=== PATIENT | male | born 1990 | race Caucasian/White ===

== ENCOUNTER 2022-09-24 18:49 | Emergency (ER) | payer OTHER, SELFPAY ==
[2022-09-24 18:58] VITALS: BP 170/104; PULSE 90; RESP 16; TEMP 36.6; O2SAT 100
--- NOTE | 2022-09-24 19:26 | ED.GENADULT ---
HPI - General Adult General Chief complaint: Ear Stated complaint: sinus issues,ear pressure Source: patient Mode of arrival: ambulatory Limitations: no limitations History of Present Illness HPI narrative: Patient presents for evaluation of sick symptoms for the past 2-3 weeks. Symptoms include sinus congestion mucopurulent discharge from the nares, left-sided ear pain, decreased hearing in left ear, cough and chills. He states he feels off balance in the left ear . No fever, nausea, vomiting, shortness of breath. He has been taking dayquil and mucinex for his symptoms. These seem to help. He smokes two cigarettes per day. He has a hx of ALL but is in remission. Related Data Allergies Allergy/AdvReac Type Severity Reaction Status Date / Time No Known Allergies Allergy Verified 09/24/22 19:01 Review of Systems Review of Systems: CONSTITUTIONAL: Reports chills. Denies fever or sweats. EYES: Denies visual changes, redness, or discharge. ENT: Reports sinus congestion and mucopurulent discharge from the nares. Reports left sided ear pain with associated hearing loss. CARDIOVASCULAR: Denies chest pain, palpitations, or edema. RESPIRATORY:Reports cough. Denies SOB. GASTROINTESTINAL: Denies abdominal pain, nausea, vomiting, or diarrhea. GENITOURINARY: Denies dysuria or hematuria. SKIN: Denies rash or itching. MUSCULOSKELETAL: Denies back pain, joint pain, or myalgia. NEUROLOGIC: Reports balance feeling off in the left ear . Denies headache, numbness, or weakness. PSYCHIATRIC: Denies anxiety or depression. [facility] Past Medical History Medical History ALL (acute lymphoblastic leukemia) Surgical History Surgical History No pertinent past surgical history Family History Family History (Updated 09/24/22 @ 19:32 by SHARON Limon, ) Father Family history non-contributory Social History Social History Smoking packs per day: 0.1 Smoking cigarettes per day: 2.0 Smoking status: Current every day smoker Substance use: never Living arrangements: with family Gender identity (if verbalized by the patient): Male Spiritual care concerns: No Exam Narrative: GENERAL: Well-appearing, well-nourished, and in no acute distress. HEAD: Normocephalic, atraumatic. EYES: PERRLA and EOMI. ENT: Nares clear, no rhinorrhea or epistaxis. Mucous membranes moist. Oropharynx without tonsillar hypertrophy exudate or other lesions. Mild right tympanic membrane erythema. I am unable to visualize the left tympanic membranes due to yellow exudate in the ear canal NECK: Supple. No adenopathy or masses. No carotid bruits or JVD CHEST: Clear to auscultation. No respiratory distress. No wheezes rales or rhonchi HEART: Regular rate and rhythm. No murmur heard. Normal peripheral pulses. ABDOMEN: Soft, nontender, nondistended, normal active bowel sounds. EXTREMITIES: Normal range of motion. No edema. SKIN: Warm, dry, no rash. NEURO: No focal deficits. Alert and oriented x3. PSYCH: Normal mood and affect. Course Course Emergency Course: This is a 32-year-old male who presented for evaluation of sinus symptoms, left-sided ear pain with decreased hearing. My exam he had yellow exudate present in the left ear canal. I irrigated his left ear with half hydrogen peroxide and half water. Nose able to visualize the left tympanic membrane which is erythematous and there appears to be a small perforation present. Will discharge with Augmentin and ofloxacin. He should follow up outpatient for further evaluation and treatment. He should not smoke. Discuss elevated BP at follow up appt. Go to the ER for intractable pain or worsening symptoms. Patient in agreement plan of care. Level of Care: Express Care Visit Vital Signs Vital signs: Vital Signs
== END 2022-09-24 19:25 | disposition home or self-care (01) ==
PROVIDERS: Emergency Provider Nurse Practitioner
DX: H66.92 Otitis media, unspecified, left ear (principal); H72.92 Unspecified perforation of tympanic membrane, left ear; F17.210 Nicotine dependence, cigarettes, uncomplicated; C91.01 Acute lymphoblastic leukemia, in remission
CPT/HCPCS: 99203; G0463

== ENCOUNTER 2024-01-07 19:20 | Emergency (ER) | payer BC, SELFPAY ==
[2024-01-07 19:53] VITALS: BP 143/101; PULSE 81; RESP 16; TEMP 36.8; O2SAT 100
--- NOTE | 2024-01-07 20:11 | ED.EYEPROB ---
HPI - Eye Problem General Chief complaint: Eye Problems Stated complaint: FB in right eye Time Seen by Provider: 01/07/24 20:15 Source: patient, RN notes reviewed and old records reviewed Mode of arrival: ambulatory Limitations: no limitations History of Present Illness HPI Narrative: 33-year-old male presents to the [facility] with a dog scratch to his right eye that occurred around noon today. Since then has had significant increase in pain, blurry vision, tearing. Has glasses but normally does not wear them. Believes his last tetanus was 3 years ago, had a bone marrow transplant Onset (ago): hour(s) (8) Treatments Prior to Arrival: none Related Data Patient tetanus UTD: Yes Allergies Allergy/AdvReac Type Severity Reaction Status Date / Time No Known Allergies Allergy Verified 09/24/22 19:01 Review of Systems Review of Systems: All systems reviewed & are unremarkable except as noted in HPI and below Constitutional: Constitutional: Reports no additional constitutional complaints Eyes: Eyes: Reports as per HPI, Reports blurry vision, Reports change in vision, Reports irritation, Reports eye pain and Reports photophobia ENT: Reports system reviewed and no additional complaints, except as documented Cardiovascular: Cardiovascular: Reports no additional cardiovascular complaints, Denies chest pain and Denies dyspnea Respiratory: Respiratory: Reports no additional respiratory complaints, Denies chest congestion, Denies cough and Denies dyspnea Gastrointestinal: Gastrointestinal: Reports no additional gastrointestinal complaints, Denies abdominal pain, Denies nausea and Denies vomiting Musculoskeletal: Musculoskeletal: Reports no additional musculoskeletal complaints Integumentary/Breasts: Skin/Breast: Reports system reviewed and no additional complaints, except as docu Neurologic: Reports system reviewed and no additional complaints, except as documented Psychiatric: Psychiatric: Reports no additional psychiatric complaints Allergic/Immunologic: Allergic/Immunologic: Reports no additional allergic/immunologic complaints [facility] Past Medical History Medical History ALL (acute lymphoblastic leukemia) Surgical History Surgical History History of bone marrow transplant No pertinent past surgical history Family History Family History Father Family history non-contributory Social History Social History Smoking packs per day: 0.1 Smoking cigarettes per day: 2.0 Smoking status: Current every day smoker Substance use: never Living arrangements: with family Gender identity (if verbalized by the patient): Male Spiritual care concerns: No Comments At the time of my signature, I reviewed and agree with the nursing past medical, surgical, social, and family history. There is no relevant family history pertinent to the patient complaint. Exam Const: General: cooperative, healthy appearing, no acute distress, well developed, alert, uncomfortable and well nourished Nutritional Appearance: well nourished Orientation/consciousness: patient oriented x3 Limitations: no limitations HENMT: Head: normal to inspection Ears: hearing grossly normal bilaterally and external ears normal Face/Nose/Sinus: Normal external nose present, Normal nares present, Normal nasal mucous membranes and turbinates present, normal facial exam and face symmetric Face and sinus: normal facial exam and face symmetric Eyes: General: appearance normal, both eyes and all related structures Alignment and Position: alignment normal Periorbital: periorbital findings normal Eyelids: eyelids normal Cornea: corneas abnormal on the right fluorescein used and ulceration within the central cornea Pupils: Equal, round and reactive pup
== END 2024-01-07 21:25 | disposition home or self-care (01) ==
PROVIDERS: Emergency Provider Nurse Practitioner
DX: S05.01XA Injury of conjunctiva and corneal abrasion without foreign body, right eye, initial encounter (principal); W54.8XXA Other contact with dog, initial encounter; C91.00 Acute lymphoblastic leukemia not having achieved remission; Z94.81 Bone marrow transplant status; F17.210 Nicotine dependence, cigarettes, uncomplicated
CPT/HCPCS: 99213; A9270; G0463

== ENCOUNTER 2024-01-21 11:43 | Emergency (ER) | payer BC, SELFPAY ==
[2024-01-21 11:50] VITALS: BP 127/80; PULSE 76; RESP 20; TEMP 36.6; O2SAT 100
--- NOTE | 2024-01-21 11:59 | ED.SKABFB ---
HPI - Skin/Abscess/Foreign Bdy General Chief complaint: Skin/Abscess/Foreign Body Stated complaint: bullseye size rashes/back/butt Time Seen by Provider: 01/21/24 12:14 Source: patient, RN notes reviewed and old records reviewed Mode of arrival: ambulatory Limitations: no limitations History of Present Illness HPI narrative: 33-year-old male to Express Care with complaint of tick bite to right buttocks and left mid back with bull's-eye rash for 4 days. Patient has attempted to treat at home with Prid. Patient endorses history of right corneal abrasion, leukemia, bone marrow transplant. Patient denies allergies, prescription medications, headache, nausea, dizziness, myalgias, fever, chills. patient in no acute distress. Related Data Allergies Allergy/AdvReac Type Severity Reaction Status Date / Time No Known Allergies Allergy Verified 01/21/24 12:04 Review of Systems Review of Systems: All systems reviewed & are unremarkable except as noted in HPI and below Constitutional: Constitutional: Reports no additional constitutional complaints Eyes: Eyes: Reports no additional eye complaints ENT: Reports system reviewed and no additional complaints, except as documented Cardiovascular: Cardiovascular: Reports no additional cardiovascular complaints, Denies chest pain and Denies dyspnea Respiratory: Respiratory: Reports no additional respiratory complaints, Denies cough and Denies dyspnea Musculoskeletal: Musculoskeletal: Reports no additional musculoskeletal complaints Integumentary/Breasts: Skin/Breast: Reports as per HPI and Reports new lesions ( One on right buttocks; 1 on left mid back) Neurologic: Reports system reviewed and no additional complaints, except as documented Psychiatric: Psychiatric: Reports no additional psychiatric complaints [facility] Past Medical History Medical History ALL (acute lymphoblastic leukemia) Surgical History Surgical History History of bone marrow transplant No pertinent past surgical history Family History Family History Father Family history non-contributory Social History Social History Smoking packs per day: 0.1 Smoking cigarettes per day: 2.0 Smoking status: Current every day smoker Substance use: never Living arrangements: with family Gender identity (if verbalized by the patient): Male Spiritual care concerns: No Comments At the time of my signature, I reviewed and agree with the nursing past medical, surgical, social, and family history. There is no relevant family history pertinent to the patient complaint. Exam Const: General: cooperative, healthy appearing, comfortable, no acute distress, alert and well nourished Nutritional Appearance: well nourished Orientation/consciousness: patient oriented x3 Limitations: no limitations HENMT: Head: normal to inspection Ears: external ears normal Face/Nose/Sinus: Normal external nose present, Normal nares present, normal facial exam, No erythema and No edema Face and sinus: normal facial exam, no erythema and no edema Mouth: Yes Normal oral and palatal mucosa present Eyes: General: appearance normal, both eyes and all related structures Neck: Neck: normal visual inspection, full ROM and no meningeal signs Lymphatic: no lymphadenopathy noted and no lymphedema noted Chest: Chest palpation & inspection: normal inspection of the chest Resp: Effort & Inspection: normal respiratory effort and able to speak in complete sentences Cardio: Jugular venous distension: no JVD Rate: regular rate Rhythm: regular rhythm Back/Spine/Pelvis: Cervical Spine: cervical ROM normal Skin: General skin exam: other Other: bull's-eye lesion noted to the right buttocks measuring 7 c
== END 2024-01-21 12:30 | disposition home or self-care (01) ==
PROVIDERS: Emergency Provider Nurse Practitioner Family
DX: A69.20 Lyme disease, unspecified (principal); S30.860A Insect bite (nonvenomous) of lower back and pelvis, initial encounter; S20.462A Insect bite (nonvenomous) of left back wall of thorax, initial encounter; W57.XXXA Bitten or stung by nonvenomous insect and other nonvenomous arthropods, initial encounter; F17.210 Nicotine dependence, cigarettes, uncomplicated; Z85.6 Personal history of leukemia; Z94.81 Bone marrow transplant status
CPT/HCPCS: 99213; G0463